=== PATIENT | male | born 1960 | race Caucasian/White ===

== ENCOUNTER 2024-10-12 12:39 | Emergency (ER) | payer SELFPAY ==
[2024-10-12] VITALS (9 sets, daily range): BP systolic 121–150; BP diastolic 79–98; PULSE 67–77; RESP 16–26; TEMP 36.7; O2SAT 80–98; BMI 25.7
--- NOTE | 2024-10-12 13:20 | ED.GENADULT ---
HPI - General Adult General Chief complaint: Shortness of Breath/Dyspnea Stated complaint: sent by PCP, lft lung pneumonia Time Seen by Provider: 10/12/24 13:02 Source: patient and family Mode of arrival: Ambulatory History of Present Illness HPI narrative: Patient is a 63-year-old male. Was seen in an outside emergency department less than 12 hours ago. It was recommended that he be transferred for a cardiac workup. He stated that he decided not to be transferred. He was going to come to the local area himself to be evaluated. After he was discharged she received a phone call stating that he had pneumonia. He reports some shortness of breath for the past several weeks. Has had subjective fevers. Nonproductive cough. No underlying lung pathology. No history of ACS or CHF. No lower extremity edema. No recent travel. Related Data Previous Rx's Medication Instructions Recorded azithromycin 250 mg tablet See Rx Instructions PO .COMPLEX #6 10/12/24 tabs Allergies Allergy/AdvReac Type Severity Reaction Status Date / Time No Known Drug Allergies Allergy Verified 10/12/24 12:57 Review of Systems Review of Systems ROS Unobtainable: All systems reviewed & are unremarkable except as noted in HPI and below Patient History Social History Smoking Status: Former smoker Smoking Status: Former smoker Exam Initial Vital Signs Initial Vital Signs: Vital Signs Temperature 98.0 F 10/12/24 12:39 Pulse Rate 70 10/12/24 12:39 Respiratory Rate 16 10/12/24 12:39 Blood Pressure 124/79 10/12/24 12:39 Pulse Oximetry 96 10/12/24 12:39 Oxygen Delivery Method Room Air 10/12/24 12:39 Const General: cooperative, comfortable and No ill appearing [facility] Head: normal to inspection and normocephalic Resp Effort & Inspection: no cough, not labored and tachypneic Auscultation: clear to auscultation bilaterally Cardio Rate: regular rate Rhythm: regular rhythm Skin General: no rashes or lesions noted Neuro General: patient alert, patient awake and moves all extremities Course Orders Ordered: ED Orders 10/12/24 13:20 EKG-12 Lead Stat 10/12/24 13:35 Basic Metabolic Panel Stat Complete Blood Count AUTO DIFF Stat NT-proBNP (BNP-Adult 18+) Stat Troponin & CK Cardiac Panel Stat Vital Signs Vital signs: Vital Signs - 8 hr 10/12/24 12:39 Temperature 98.0 F Pulse Rate 70 Respiratory Rate 16 Blood Pressure 124/79 Pulse Oximetry 96 Oxygen Delivery Method Room Air Medical Decision Making Medical Records Medical records reviewed: Yes I reviewed the patient's medical records. Lab Data 10/12/24 13:35 10/12/24 13:35 Labs: Lab Results 10/12/24 Range/Units 13:35 WBC 9.8 (4.5-11.0) X10^3/uL RBC 4.86 (4.5-5.9) X10^6/uL Hgb 14.6 (13.5-17.5) g/dL Hct 43.9 (41-53) % MCV 90.4 (80-100) fL MCH 30.1 (26-34) PG MCHC 33.3 (30-36) % RDW 13.9 (11.6-14.8) % Plt Count 324 (150-400) X10^3/uL Neut % (Auto) 79.4 H (50-75) % Lymph % (Auto) 12.2 L (25-40) % [place] % (Auto) 6.9 (3-14) % Eos % (Auto) 1.0 L (2-4) % Baso % (Auto) 0.5 (0-2) % Neut # (Auto) 7800 H (8636-2705) /uL Lymph # (Auto) 1200 (8289-3394) /uL [place] # (Auto) 700 (0-900) /uL Eos # (Auto) 100 (0-450) /uL Baso # (Auto) 0 (0-100) /uL Sodium 131 L (137-145) mmol/L Potassium 5.8 H (3.4-5.1) mmol/L Chloride 100 (98-107) mmol/L Carbon Dioxide 25 (22-32) mmol/L BUN 23 H (9-20) mg/dL Creatinine 1.21 (0.66-1.25) mg/dL Estimated GFR > 60 (>60) mL/min BUN/Creatinine Ratio 19.0 (6-22) Glucose 119 H (80-110) mg/dL Calcium 8.9 (8.4-10.2) mg/dL Total Creatine Kinase 304 H (55-170) U/L Troponin I 0.021 (0.01-0.034) ng/mL NT-Pro-B Natriuret Pep 6690 H (<125) pg/mL ECG Data Attestation: I personally reviewed and interpreted this ECG as follows: Interpretation: Sinus rhythm Ventricular rate is 70 Normal axis First-degree AV block Left bundle-branch block No ST T wave changes MDM Narrative Medical decision making narrative: Patient had a chest x-ray performed at an outside facility. I do not have the pictures to actually evaluate but I do have the report and it did show a left lower lobe pneumonia. He has had subjective fevers and also a cough and shortness of breath that actually worsened 2 days ago. This very well could explain his shortness of breath he also has had some baseline shortness of breath for the past several weeks. No chest pain. No lower extremity swelling. He was not hypoxic. His BNP was elevated. He was no history of heart failure. He was not clinically in heart failure. He was not hypertensive. Review of the labs from the facility from earlier this morning shows a negative troponin. He was another negative troponin today. Low suspicion for ACS. The plan will be to place him on antibiotics to treat his pneumonia. He was advised that if his symptoms do not improve after a course of treatment for pneumonia that he does need to contact his primary care doctor for a follow-up. He expressed understanding and agreement with plan. Discharge Plan Departure Patient Disposition: Home Clinical Impression: Pneumonia Instructions: DI for Pneumonia -- Adult Activity Restrictions/Additional Instructions: A prescription for antibiotics was sent to [facility] [place]. Recommend you pick this medication up and take it as directed. You do need to make contact with the primary care doctor. If your shortness of breath does not improve with the antibiotics you should be re-evaluated. Prescriptions: New azithromycin 250 mg tablet See Rx Instructions .ROUTE .COMPLEX Qty: 6 0RF Rx Instructions: For 250 mg dose pack: take 500 mg today (day 1), then 250 mg for 4 days (days 2-5) Referrals: Miscellaneous,Doctor, MD [Primary Care Provider] - Stand Alone Forms: Patient Portal/API/Survey
--- NOTE | 2024-10-12 13:31 | EKG_ITS ---
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
[2024-10-12 13:56] LABS: Add Manual Diff / Slide Review NO; Basophils Absolute Auto 0 /uL (0-100); Basophils Percent Auto 0.5 % (0-2); Eosinophils Absolute Auto 100 /uL (0-450); Hematocrit 43.9 % (41-53); Hemoglobin 14.6 g/dL (13.5-17.5); Lymphocytes Absolute Auto 1200 /uL (1100-4500); Lymphocytes Percent Auto 12.2 % (25-40); Mean Corpuscular HGB Conc 33.3 % (30-36); Mean Corpuscular Hemoglobin 30.1 PG (26-34); Mean Corpuscular Volume 90.4 fL (80-100); Monocytes Absolute Auto 700 /uL (0-900); Monocytes Percent Auto 6.9 % (3-14); Neutrophils Absolute Auto 7800 /uL (1500-7000); Neutrophils Percent Auto 79.4 % (50-75); Platelet Count 324 X10^3/uL (150-400); Red Blood Cell Count 4.86 X10^6/uL (4.5-5.9); Red Cell Distribution Width 13.9 % (11.6-14.8); White Blood Cell Count 9.8 X10^3/uL (4.5-11.0)
[2024-10-12 14:21] LABS: Blood Urea Nitrogen 23 mg/dL (9-20); Calcium 8.9 mg/dL (8.4-10.2); Carbon Dioxide 25 mmol/L (22-32); Chloride 100 mmol/L (98-107); Creatine Kinase 304 U/L (55-170); Estimated Glomerular Filt Rate > 60 mL/min (>60); Glucose 119 mg/dL (80-110); HEMOLYSIS < 15 (0-50); Sodium 131 mmol/L (137-145)
[2024-10-12 14:22] LABS: Potassium 5.8 mmol/L (3.4-5.1)
[2024-10-12 14:32] LABS: Troponin I 0.021 ng/mL (0.01-0.034)
[2024-10-12 14:58] LABS: NT-proBNP (BNP-Adult 18+) 6690 pg/mL (<125)
== END 2024-10-12 15:29 | disposition home or self-care (01) ==
PROVIDERS: Emergency Provider Emergency Medicine
DX: J18.9 Pneumonia, unspecified organism (principal); R06.02 Shortness of breath; Z87.891 Personal history of nicotine dependence
CPT/HCPCS: 36415; 80048; 82550; 83880; 84484; 85025; 93005; 99283; 99284

== ENCOUNTER 2024-10-14 07:42 | Emergency (ER) | payer SELFPAY ==
[2024-10-14 07:47] VITALS: BP 151/107; PULSE 89; O2SAT 97
[2024-10-14 07:48] VITALS: BP 151/107; PULSE 89; RESP 16; TEMP 36.4; O2SAT 98; BMI 25.0
--- NOTE | 2024-10-14 07:50 | ED.GENADULT ---
HPI - General Adult General Chief complaint: Shortness of Breath/Dyspnea Stated complaint: Hard time breathing, can't sleep Time Seen by Provider: 10/14/24 07:44 History of Present Illness HPI narrative: 63-year-old male with recent cough and shortness of breath, diagnosis of pneumonia recent by chest x-ray, day 3 of oral azithromycin course, using inhaler, feels more short of breath. No chest pain. No history of blood clots to legs or lungs, no leg pain or swelling symptoms. Related Data Previous Rx's Medication Instructions Recorded azithromycin 250 mg tablet See Rx Instructions PO .COMPLEX #6 10/12/24 tabs albuterol sulfate 90 mcg/actuation 2 puff inhalation Q6H PRN 10/14/24 aerosol inhaler shortness of breath or wheezing #8.5 grams doxycycline hyclate 100 mg capsule 100 mg PO BID #20 caps 10/14/24 Allergies Allergy/AdvReac Type Severity Reaction Status Date / Time No Known Drug Allergies Allergy Verified 10/12/24 12:57 Patient History Social History Smoking Status: Former smoker Smoking Status: Former smoker Exam Narrative Exam Narrative: GENERAL: Well-developed patient, in mild distress. HEAD: Atraumatic. Normocephalic. EYES: Pupils equal round and reactive. Extraocular motions intact. No scleral icterus. No injection or drainage. ENT: Nose without bleeding, purulent drainage. Throat without erythema, tonsillar hypertrophy or exudate. Airway patent. NECK: Trachea midline. Non tender CARDIOVASCULAR: Regular rate and rhythm without murmurs, gallops, or rubs. RESPIRATORY: Clear to auscultation. Breath sounds equal bilaterally. No wheezes, rales, or rhonchi. GASTROINTESTINAL: Abdomen soft, non-tender, nondistended. EXTREMITIES: No edema or joint tenderness. BACK: Nontender without deformity or crepitance. No flank tenderness. NEURO: AOx3. Motor functions grossly nonfocal SKIN: No rash or erythema of visible areas Initial Vital Signs Initial Vital Signs: Vital Signs Pulse Rate 89 10/14/24 07:47 Blood Pressure 151/107 H 10/14/24 07:47 Pulse Oximetry 97 10/14/24 07:47 Course Orders Ordered: Discontinued Medications Albuterol (Albuterol 2.5 Mg/3 Ml Neb (Adult)) 2.5 mg INH NOW ONE Stop: 10/14/24 07:59 Last Admin: 10/14/24 08:06 Dose: 2.5 mg Documented By: CTS Doxycycline Hyclate (Doxycycline Hyclate 100 Mg Tablet) 100 mg PO NOW ONE Stop: 10/14/24 08:26 Last Admin: 10/14/24 08:32 Dose: 100 mg Documented By: CTS Vital Signs Vital signs: Vital Signs - 8 hr 10/14/24 07:47 10/14/24 07:47 10/14/24 07:48 Temperature 97.5 F L Pulse Rate 89 89 Respiratory Rate 16 Blood Pressure 151/107 H 151/107 H Pulse Oximetry 97 98 Oxygen Delivery Method Room Air 10/14/24 08:00 Temperature Pulse Rate 83 Respiratory Rate Blood Pressure Pulse Oximetry 94 Oxygen Delivery Method Medical Decision Making Lab Data Lab results reviewed: Yes I reviewed the patient's lab results. Lab results narrative: Covid flu RSV negative Labs: Lab Results 10/14/24 Range/Units 08:04 SARS-CoV-2 (PCR) Negative (Negative) Influenza A (RT-PCR) Flu a negative (NEGATIVE) Influenza B (RT-PCR) Flu b negative (NEGATIVE) RSV (PCR) Negative (Negative) Imaging Data Chest x-ray: Radiologist's Impression: [place] [address] XRay Report Signed Patient: Shukri Montiel MR#: [id number] : 1960 Acct:[id number] Age/Sex: 63 / M Date of Service: 10/14/24 Loc: ED Accession Number: [id number] Procedure: XR chest 2V Ordering Provider: Josiah England MD PROCEDURE: XR CHEST 2V INDICATIONS: dyspnea, on abx for pneumonia TECHNIQUE: 2 views of the chest were acquired. COMPARISON: None. FINDINGS: Surgical changes and devices: None. Lungs and pleura: Bibasilar posterior segmental opacification, best identified on the lateral view. No pleural effusions or pneumothorax. Mediastinum: Mediastinal contours are normal. Heart size is normal. Bones and chest wall: No suspicious bony abnormalities. Soft tissues appear unremarkable. IMPRESSION: Likely residual pneumonia at the bibasilar dependent lung bases, given the history of ongoing treatment with antibiotics. Dictated by: Leonardo Fleming M.D. on 10/14/2024 at 8:30 Approved by: Leonardo Fleming M.D. on 10/14/2024 at 8:32 [facility] Narrative Medical decision making narrative: 63-year-old male with recent diagnosis of pneumonia, completed 3 day course azithromycin, feeling more short of breath. Lungs clear. 99% room air sat noted. No respiratory distress. No lower extremity edema. Trial of albuterol SVN. We will obtain chest x-ray. Since swab for COVID/influenza. CXR shows basilar infiltrates, see radiology report. Could be residual change from recent pneumonia, not necessarily a new infiltrate. Discussed with patient/family. Covid, flu, RSV negative Symptomatically not improved so far on macrolide antibiotic. No oxygen requirement. Will add oral Doxycycline antibiotic course, also add Albuterol for discharge. Spacer with education dispensed, to use with inhaler. Home with , improved, stable, return precautions discussed Discharge Plan Departure Patient Disposition: Home Clinical Impression: Pneumonia Activity Restrictions/Additional Instructions: Recent diagnosis of pneumonia, having been taking azithromycin oral antibiotic course. Worse shortness of breath. Breathing treatment given, with improved symptoms. Prescription for Albuterol inhaler sent to your pharmacy, with use of spacer to help deliver the medication more effectively, advised use of 2 puffs 4 times daily for 1 week, and then as needed. Chest x-ray done today shows lower lobe infiltrates, suspicious for pneumonia. This can represent your previous recent pneumonia and not necessarily a new lung infiltrate, and it can take weeks for chest x-ray to normalize after pneumonia illness. However, given your worsening shortness of breath, we discussed additional course of antibiotic, doxycycline dose given orally in the emergency department, further course of antibiotics sent to your pharmacy as prescription. Take antibiotics as directed. Drink plenty of fluids. Take Tylenol and or Motrin as needed for fever control. Recheck symptoms with your regular doctor early next week. Return to this/nearest emergency department for any change worsening symptoms or any concerns prior Prescriptions: New doxycycline hyclate 100 mg capsule 100 mg PO BID Qty: 20 0RF albuterol sulfate 90 mcg/actuation HFA aerosol inhaler 2 puff inhalation Q6H PRN (Reason: shortness of breath or wheezing) Qty: 8.5 0RF No Action azithromycin 250 mg tablet See Rx Instructions .ROUTE .COMPLEX Qty: 6 0RF Rx Instructions: For 250 mg dose pack: take 500 mg today (day 1), then 250 mg for 4 days (days 2-5) Referrals: Miscellaneous,Doctor, MD [Primary Care Provider] - Stand Alone Forms: Patient Portal/API/Survey
--- NOTE | 2024-10-14 07:58 | DI.RAD.S_ITS ---
PROCEDURE: XR CHEST 2V INDICATIONS: dyspnea, on abx for pneumonia TECHNIQUE: 2 views of the chest were acquired. COMPARISON: None. FINDINGS: Surgical changes and devices: None. Lungs and pleura: Bibasilar posterior segmental opacification, best identified on the lateral view. No pleural effusions or pneumothorax. Mediastinum: Mediastinal contours are normal. Heart size is normal. Bones and chest wall: No suspicious bony abnormalities. Soft tissues appear unremarkable. IMPRESSION: Likely residual pneumonia at the bibasilar dependent lung bases, given the history of ongoing treatment with antibiotics. Dictated by: Leonardo Fleming M.D. on 10/14/2024 at 8:30 Approved by: Leonardo Fleming M.D. on 10/14/2024 at 8:32
[2024-10-14 08:00] VITALS: PULSE 83; O2SAT 94
[2024-10-14] MEDS: ALBUTEROL 2.5 MG/3 ML NEB (ADULT) INH (08:06)
[2024-10-14] MEDS: DOXYCYCLINE HYCLATE 100 MG TABLET PO (08:32)
[2024-10-14 08:43] LABS: Influenza A - CEPHEID Flu A NEGATIVE (NEGATIVE); Influenza B - CEPHEID Flu B NEGATIVE (NEGATIVE); Respiratory Syncytial Virus Negative (Negative)
[2024-10-14 08:46] LABS: COVID-19 CEPHEID 4-PLEX PCR Negative (Negative)
== END 2024-10-14 09:03 | disposition home or self-care (01) ==
PROVIDERS: Emergency Provider Emergency Medicine
DX: J18.9 Pneumonia, unspecified organism (principal); Z87.891 Personal history of nicotine dependence
CPT/HCPCS: 0241U; 71046; 99283; J7613